=== PATIENT | female | born 1970 | race Caucasian/White ===

== ENCOUNTER 2017-09-22 15:55 | Emergency (ER) | payer OTHER ==
[2017-09-22 16:07] VITALS: BP 154/80
--- NOTE | 2017-09-22 16:11 | UC ---
Dental HPI - HPI Summary HPI Summary: 46 y/o female presents to the urgent care c/o swelling of left side of face w/ dental pain for the past 2 days. Pt reports about a month ago a filling fell off and her dentist did dental work but she didn't returned for him to finished. Pain is 6/10 toady and this morning she woke up w/ mild swelling in her left cheek, She thinks she has a dental abscess. Pt denies fever, NOWAK, dizziness, trismus, SOB, chest pain, abdominal pain, N/v/D. She has not taking any meds to alleviate symptoms - History of Current Complaint Chief Complaint: UCDentalProblem Stated Complaint: SINUSES COMPLAINT Time Seen by Provider: 09/22/17 16:10 Hx Obtained From: Patient Hx Last Menstrual Period: pt does not get a menses d/t an ablasion ?: No Onset/Duration: Gradual Onset, Lasting Days - 2 days, Worse Since - this morning Severity: Moderate Pain Intensity: 6 Pain Scale Used: 0-10 Numeric Aggravating Factor(s): Chewing Alleviating Factor(s): Nothing Related History: Previous Dental Care on Same Tooth - Allergies/Home Medications Allergies/Adverse Reactions: Allergies Allergy/AdvReac Type Severity Reaction Status Date / Time oxytetracycline Allergy Unknown Verified 09/22/17 16:10 Reaction Details Penicillins Allergy Hives Verified 09/22/17 16:10 PMH/Surg Hx/FS Hx/Imm Hx Previously Healthy: Yes Cardiovascular History: Hypertension GI/ History: Gastroesophageal Reflux Psychological History: Anxiety, Depression - Surgical History Surgical History: Yes Surgery Procedure, Year, and Place: 2 c-sections, lower back surgery - Family History Known Family History: Positive: Hypertension Family History: Skin cancer - Social History Occupation: Employed Full-time Lives: With Family Alcohol Use: Occasionally 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 Substance Use Type: Marijuana Smoking Status (MU): Never Smoked Tobacco - Immunization History Most Recent Influenza Vaccination: 2014 Most Recent Tetanus Shot: within 5 years Most Recent Pneumonia Vaccination: 2013 Review of Systems Constitutional: Negative Skin: Negative Eyes: Negative ENT: Dental Pain - of left upper jaw w/ swelling of left cheek, Ear Ache - left ear pain Respiratory: Negative Cardiovascular: Negative Gastrointestinal: Negative Genitourinary: Negative Motor: Negative Neurovascular: Negative Musculoskeletal: Negative Neurological: Headache Psychological: Negative Is Patient Immunocompromised?: No All Other Systems Reviewed And Are Negative: Yes Physical Exam - Summary Physical Exam Summary: Vital Signs Reviewed: Yes General: well developed. well nourished female sitting in the examining table w/ o any apparent distress Eyes: Positive: Conjunctiva Clear - PERRLA, EOMI, fundi grossly normal ENT: Positive: Normal ENT inspection, Hearing grossly normal, Pharyngeal erythema, TMs normal, Uvula midline. Negative: Tonsillar swelling, Tonsillar exudate, Trismus Dental: Positive: Percussion Tenderness @ - molar 12-16, Gross Decay/Caries @ - molar 16, Abscess @ - molar 14-16, Cervical Lymphadenopathy - B/L anterior, Neck: Positive: Supple, Nontender Respiratory: Positive: Chest non-tender, Lungs clear, Normal breath sounds, No respiratory distress Cardiovascular: Positive: RRR, No Murmur, Pulses Normal, Brisk Capillary Refill Abdomen Description: Positive: Nontender, No Organomegaly, Soft. Negative: CVA Tenderness (R), CVA Tenderness (L) Bowel Sounds: Positive: Present Musculoskeletal: Positive: Strength Intact, ROM Intact, No Edema Neurological Exam: Normal Psychological Exam: Normal Skin Exam: Normal Triage Information Reviewed: Yes Vital Signs: Initial Vital Signs Temp 99.2 F 09/22/17 16:02 Pulse 103 09/22/17 16:02 Resp 20 09/22/17 16:02 BP 154/80 09/22/17 16:02 Pulse Ox 100 09/22/17 16:02 Dental Complaint Course/Dx - Course Course Of Treatment: 46 y/o female presents to the urgent care c/o swelling of left side of face w/ dental pain for the past 2 days. Pt reports about a month ago a filling fell off and her dentist did dental work but she didn't returned for him to finished. Painis 11/08 toady and this morning she woke up w/ mild swelling in her left cheek, She thinks she has a dental abscess. Pt denies fever , NOWAK, dizziness, trismus, SOB, chest pain, abdominal pain, N/v/D. Pt has not taking any meds to alleviate symptoms. Hx obtained. Pt w/ a dental abscess on the left upper jaw around molar 14-16 on examination.Pt given viscous Lidocaine at the clinic to apply home to alleviate symptoms. Pt Rx Clindamycin PO and Naproxen PO for pain. Pt strongly advised to f/u with Dentist as soon as possible further evaluation and treatment. Pt's BP is elevated today advised to decrease salt in diet, monitor BP and f/u with PCP for further management. Pt understood and agreed with plan of care. Left the clinic ambulating. - Differential Dx/Diagnosis Differential Diagnosis/Dx: Dental Abscess, Fractured Tooth, Odontogenic Pain, Peridontic Disease, Peritonsillar Abcess Provider Diagnoses: 1- Dental abscess on molar 14-16. 2-Uncontrolled HTN Discharge - Sign-Out/Discharge Documenting (check all that apply): Discharge/Admit/Transfer - D/c home - Discharge Plan Condition: Stable Disposition: HOME Prescriptions: Clindamycin Cap(NF) [Clindamycin Cap 300 mg Cap(NF)] 300 mg PO TID #28 cap Naproxen TAB* [Naprosyn 250 mg TAB*] 250 mg PO Q8H PRN #30 tab PRN Reason: Pain Patient Education Materials: Dental Abscess (ED), Low-Sodium Diet (ED) Referrals: Elias Cooley PA [Primary Care Provider] - 2 Days Additional Instructions: 1-Please take full course of antibiotic to avoid resistance. 2- Take Naproxen as instructed after meals to alleviate pain and swelling. Apply the viscous Lidocaine as directed to alleviate pain. 3- F/u with your Dentist or Dental List provided as soon as possible for further treatment. 4- If symptoms do not improve or worsen please return to the urgent care or f/u with your PCP for further evaluation and treatment 5-Your BP is elevated today. please decrease salt in your diet, monitor BP and if it continues to be elevated please f/u with your PCP for further management - Billing Disposition and Condition Condition: STABLE Disposition: HOME
[2017-09-22] MEDS ORDERED: Ibuprofen TAB* 400 MG PO ONE (16:21)
[2017-09-22] MEDS ORDERED: Lidocaine 2% VISCOUS* 15 ML UDC SWISH SPIT ONE (16:22)
[2017-09-22] MEDS ORDERED: Clindamycin CAP* 150 MG PO ONE (16:22)
== END 2017-09-22 16:40 | disposition home or self-care (01) ==
LOC: UCCORT 15:55
DX: K04.7 Periapical abscess without sinus (principal); I10 Essential (primary) hypertension; Z88.3 Allergy status to other anti-infective agents; Z88.0 Allergy status to penicillin
CPT/HCPCS: 99213; A9270-GY; G0463